=== PATIENT | male | born 1980 | race American Indian/Alaskan Native ===

== ENCOUNTER 2016-11-10 17:38 | Emergency (ER) | payer SELFPAY ==
[2016-11-10 19:39] VITALS: BP 112/87
[2016-11-10 20:06] LABS: Hematocrit 49.4 % (35.5-45.6); Mean Corpuscular HGB Conc 35 % (32-34); Mean Corpuscular Hemoglobin 26 pg (28-32); Mean Corpuscular Volume 75 fl (84-94); Platelet Count 176 K/mm3 (140-440); Red Blood Count 6.58 M/mm3 (3.65-5.03); Red Cell Distribution Width 14.3 % (13.2-15.2); White Blood Count 4.8 K/mm3 (4.5-11.0)
[2016-11-10 20:21] LABS: Anion Gap 22 mmol/L; Blood Urea Nitrogen 21 mg/dL (9-20); Calcium 8.9 mg/dL (8.4-10.2); Carbon Dioxide 19 mmol/L (22-30); Chloride 90.8 mmol/L (98-107); Glucose 102 mg/dL (75-100); Sodium 130 mmol/L (137-145)
[2016-11-10 20:37] LABS: Basophils % (Manual) 0 % (0.0-1.8); Blastocytes % (Manual) 0 %; Eosinophils % (Manual) 0 % (0.0-4.3)
[2016-11-10 20:38] LABS: Anisocytosis 1+; Poikilocytosis 1+
[2016-11-10 20:39] LABS: Diff Status Complete
== END 2016-11-11 00:50 | disposition left against medical advice (07) ==
LOC: ED 17:38
DX: R11.2 Nausea with vomiting, unspecified (principal); Z53.21 Procedure and treatment not carried out due to patient leaving prior to being seen by health care provider
CPT/HCPCS: 36415; 80048; 85007; 85025